=== PATIENT | male | born 1990 | race African-American/Black ===

== ENCOUNTER 2018-09-07 19:13 | Emergency (ER) | payer SELFPAY ==
[~2018-09-07] VITALS: Ht 195.6 cm; Wt 99.8 kg
--- NOTE | 2018-09-07 20:13 | NUR ---
PATIENT EAR WAS IRRIGATED. AFTER PATIENT STATES "I FEEL BETTER NOW. I CAN HEAR."
--- NOTE | 2018-09-07 20:24 | NUR ---
Patient discharged to home in stable conditon. Written and verbal after care instructions given. Patient verbalizes understanding of instructions. WALKED OUT OF ER WITH NO DISTRESS NOTED
[2018-09-07 20:25] VITALS: BP 138/88
== END 2018-09-07 20:26 | disposition home or self-care (01) ==
LOC: ER 19:13
DX: H61.22 Impacted cerumen, left ear (principal); F17.200 Nicotine dependence, unspecified, uncomplicated
CPT/HCPCS: A4663